=== PATIENT | female | born 1995 | race Caucasian/White ===

== ENCOUNTER 2017-05-06 13:11 | Emergency (ER) | payer MEDICAID ==
[2017-05-06] MEDS ORDERED: methylPREDNISolone Sodium Succinate 125 MG/2 ML SDV ONE (13:13)
[2017-05-06] MEDS ORDERED: diphenhydrAMINE 50 MG/ML SDV ONE (13:14)
[2017-05-06] MEDS ORDERED: methylPREDNISolone Sodium Succinate 125 MG/2 ML SDV IVPUSH ONE (13:14)
[2017-05-06] MEDS ORDERED: diphenhydrAMINE 50 MG/ML SDV IVPUSH ONE (13:14)
--- NOTE | 2017-05-06 13:32 | EDM.PDOC ---
ED HPI GENERAL MEDICAL PROBLEM - General Stated Complaint: STUNG BY BEE STRAIGHT BACK Time Seen by Provider: 05/06/17 13:15 Source of Information: Reports: Patient History Limitations: Reports: No Limitations - History of Present Illness INITIAL COMMENTS - FREE TEXT/NARRATIVE: This 22 yo female patient reports to the ED due to a bee sting. The patient reports she was working at [employer] and the bee was inside the building and stung her on her left forearm. The patient reports she has had a similar reaction to a bee sting in the past. The patient reports she was not able to afford an EpiPen. The patient reports after the sting, she came directly to the ED. Onset: Today Duration: Minutes:, Constant Location: Reports: Neck, Upper Extremity, Left Quality: Reports: Ache, Dull, Pressure Severity: Moderate Improves with: Reports: None Worsens with: Reports: None Context: Reports: Other (bee sting) Associated Symptoms: Reports: No Other Symptoms Left Arm Pain Score (Numeric/FACES): 10 - Related Data Allergies Allergy/AdvReac Type Severity Reaction Status Date / Time Penicillins Allergy Airway Verified 05/06/17 13:25 Tightness beestings Allergy Swelling Uncoded 05/06/17 13:25 Home Meds: Home Meds Albuterol [Proventil HFA] 1 puff INH ASDIRECTED PRN 06/07/15 [History] Social & Family History - Tobacco Use Smoking Status *Q: Current Every Day Smoker Years of Tobacco use: 4 Packs/Tins Daily: 1 Month Tobacco Last Used: January Second Hand Smoke Exposure: No - Alcohol Use Days Per Week of Alcohol Use: 0 - Recreational Drug Use Recreational Drug Use: No ED ROS ALLERGIC REACTION - Review of Systems Review Of Systems: ROS reveals no pertinent complaints other than HPI. ED EXAM GENERAL NO PERIP PULSE - Physical Exam Exam: See Below Exam Limited By: No Limitations General Appearance: Alert, WD/WN, Moderate Distress, Obese Eye Exam: Bilateral Eye: EOMI, Normal Inspection, PERRL Ears: Normal External Exam, Normal Canal, Hearing Grossly Normal, Normal TMs Nose: Normal Inspection, Normal Mucosa, No Blood Throat/Mouth: Normal Inspection, Normal Lips, Normal Teeth, Normal Gums, Normal Oropharynx, Normal Voice, No Airway Compromise Head: Atraumatic, Normocephalic Neck: Normal Inspection, Supple, Non-Tender, Full Range of Motion Respiratory/Chest: No Respiratory Distress, Lungs Clear, Normal Breath Sounds, No Accessory Muscle Use, Chest Non-Tender Cardiovascular: Normal Peripheral Pulses, Regular Rate, Rhythm, No Edema, No Gallop, No JVD, No Murmur, No Rub (Female) Exam: Deferred Rectal (Female) Exam: Deferred Back Exam: Normal Inspection, Full Range of Motion, NT Extremities: Normal Range of Motion, Normal Capillary Refill, Arm Pain (left forearm swelling and pain) Neurological: Alert, Oriented, CN II-XII Intact, Normal Cognition, Normal Gait, Normal Reflexes, No Motor/Sensory Deficits Psychiatric: Normal Affect, Normal Mood Skin Exam: Erythema (left forearm) Lymphatic: No Adenopathy Course - Vital Signs Last Recorded V/S: Last Vital Signs Temp 36.1 C 05/06/17 13:21 Pulse 100 05/06/17 13:21 Resp 16 05/06/17 13:21 BP 128/66 05/06/17 13:21 Pulse Ox 99 05/06/17 13:21 - Orders/Labs/Meds Meds: Medications Discontinued Medications Generic Name Dose Route Start Last Admin Trade Name Maximino PRN Reason Stop Dose Admin Diphenhydramine HCl 50 mg 05/06/17 13:14 05/06/17 13:17 Benadryl IVPUSH 05/06/17 13:15 50 mg ONETIME ONE Administration Diphenhydramine HCl Confirm 05/06/17 13:14 05/06/17 13:34 Benadryl Administered 05/06/17 13:15 Not Given Dose 50 mg .ROUTE .STK-MED ONE Methylprednisolone Sodium Succinate 125 mg 05/06/17 13:14 05/06/17 13:17 Solu-Medrol IVPUSH 05/06/17 13:15 125 mg ONETIME ONE Administration Methylprednisolone Sodium Succinate Confirm 05/06/17 13:13 05/06/17 13:34 Solu-Medrol Administered 05/06/17 13:14 Not Given Dose 125 mg .ROUTE .STK-MED ONE Departure - Departure Time of Disposition: 14:03 Disposition: Home, Self-Care 01 Condition: Fair Clinical Impression: Bee sting-induced anaphylaxis Qualifiers: Encounter type: subsequent encounter Injury intent: accidental or unintentional Qualified Code(s): T63.441D - Toxic effect of venom of bees, accidental (unintentional), subsequent encounter - Discharge Information Instructions: Bee, Wasp, or Hornet Sting Care Plan Goals: The patient was advised of the examination results during the visit. The patient was given an IV dose of Benadryl and and IV dose of Solu-Medrol while in the ED. The patient was discharged with a script for Prednisone (20 mg) #10 to take 2 by mouth daily starting 05/07/17 and an EpiPen (0.3 mg) #1 autoinjector to inject in thigh once symptoms begin after bee sting. The patient should continue to take Benadryl (25 mg) every 6 hours for the next 24 hours. If the patient has any additional symptoms or concerns, the patient should follow-up with her primary care facility or return to the emergency department.
[2017-05-06 14:27] VITALS: BP 124/68
== END 2017-05-06 14:25 | disposition home or self-care (01) ==
LOC: DL.ED 13:11
DX: T63.441A Toxic effect of venom of bees, accidental (unintentional), initial encounter (principal); F17.210 Nicotine dependence, cigarettes, uncomplicated; Z88.0 Allergy status to penicillin
CPT/HCPCS: 96374; 96375; 99283; J1200; J2930

== ENCOUNTER 2017-09-22 22:47 | Emergency (ER) | payer MEDICAID ==
[2017-09-22 23:00] VITALS: BP 132/69
[2017-09-22] MEDS ORDERED: Acetaminophen 325 MG Tab PO ONE (23:25)
[2017-09-22 23:36] LABS: ANION GAP 8.5; CHLORIDE,CL 106 mmol/L (101-111); SODIUM,NA 136 mmol/L (135-145)
--- NOTE | 2017-09-23 00:15 | EDM.PDOC ---
ED HPI GENERAL MEDICAL PROBLEM Right Pelvic Pain Score (Numeric/FACES): 9 <Silvestre Blair - Last Filed: 09/23/17 00:14> - General Source of Information: Reports: Patient History Limitations: Reports: No Limitations <Catherine Guillen - Last Filed: 09/23/17 01:46> - General Chief Complaint: [employer] Problem Stated Complaint: POSSIBLE MISCARRIAGE [id number] Time Seen by Provider: 09/22/17 23:00 - History of Present Illness INITIAL COMMENTS - FREE TEXT/NARRATIVE: C/O bright red vaginal bleeding with cramping and RLQ pain. Has been taking Clomid since July. LMP one month ago. Last OB visit yesterday. Reports HCG 1200. SAB2 Bleeding started approximtely 630 tonight has gone thru 4 large pads. (Catherine Guillen) - Related Data Allergies Allergy/AdvReac Type Severity Reaction Status Date / Time Cephalosporins Allergy Anaphylactic Verified 09/22/17 23:02 Shock Penicillins Allergy Airway Verified 05/06/17 13:25 Tightness beestings Allergy Swelling Uncoded 05/06/17 13:25 Home Meds: Home Meds Albuterol [Proventil HFA] 1 puff INH ASDIRECTED PRN 06/07/15 [History] clomiPHENE Citrate [Serophene] 50 mg PO ASDIRECTED 09/22/17 [History] Past Medical History HEENT History: Reports: None Cardiovascular History: Reports: None Respiratory History: Reports: Asthma Gastrointestinal History: Reports: None Genitourinary History: Reports: None [employer] History: Reports: None Musculoskeletal History: Reports: None Neurological History: Reports: None Psychiatric History: Reports: None Endocrine/Metabolic History: Reports: None Hematologic History: Reports: None Immunologic History: Reports: None Oncologic (Cancer) History: Reports: None Dermatologic History: Reports: None - Infectious Disease History Infectious Disease History: Reports: Chicken Pox - Past Surgical History Head Surgeries/Procedures: Reports: None GI Surgical History: Reports: Appendectomy <Silvestre Blair - Last Filed: 09/23/17 00:14> Social & Family History - Tobacco Use Smoking Status *Q: Light Tobacco Smoker Years of Tobacco use: 5 Packs/Tins Daily: 0.3 Month Tobacco Last Used: January Second Hand Smoke Exposure: No - Caffeine Use Caffeine Use: Reports: Soda - Alcohol Use Days Per Week of Alcohol Use: 0 - Recreational Drug Use Recreational Drug Use: No <Silvestre Blair - Last Filed: 09/23/17 00:14> ED ROS GENERAL - Review of Systems Review Of Systems: ROS reveals no pertinent complaints other than HPI. <Catherine Guillen - Last Filed: 09/23/17 01:46> ED EXAM - Physical Exam Exam: See Below Exam Limited By: No Limitations General Appearance: Alert, Anxious Ears: Normal External Exam Nose: Normal Inspection Throat/Mouth: Normal Inspection Head: Atraumatic, Normocephalic Respiratory/Chest: No Respiratory Distress, Lungs Clear, Normal Breath Sounds Cardiovascular: Regular Rate, Rhythm GI/Abdominal Exam: Normal Bowel Sounds, Soft, Tender (RLQ) (Female) Exam: Normal External Exam, Other (imited exam, small amount blood pooling posterior vaginal vault. Cervix high posterior, not manipulated for visualization.). No: Tissue Present in Cervix/Vagina Extremities: Normal Inspection Neurological: Alert, Oriented, Normal Cognition Psychiatric: Anxious, Tearful Skin Exam: Warm, Dry, Intact, Normal Color <Catherine Guillen - Last Filed: 09/23/17 01:46> Course <Silvestre Blair - Last Filed: 09/23/17 00:14> <Catherine Guillen - Last Filed: 09/23/17 01:46> - Vital Signs Last Recorded V/S: Last Vital Signs Temp 98.6 F 09/22/17 22:57 Pulse 104 H 09/22/17 22:57 Resp 18 09/22/17 22:57 BP 132/69 09/22/17 22:57 Pulse Ox 97 09/22/17 22:57 - Orders/Labs/Meds Orders: Active Orders 24 hr Category Date Time Status OB Ltd 1 or More Fetus [US] Urgent Exams 09/22/17 23:27 Ordered OB Transvaginal [US] Urgent Exams 09/22/17 23:31 Ordered Labs: Laboratory Tests 09/22/17 09/22/17 09/22/17 Range/Units 22:54 23:08 23:08 WBC 14.7 H (5.0-10.0) 10^3/uL RBC 4.38 (4.2-5.4) 10^6/uL Hgb 12.9 (12.0-16.0) g/dL Hct 38.5 (37.0-47.0) % MCV 87.9 (80-100) fL MCH 29.5 (27.0-34.0) pg MCHC 33.5 (33.0-35.0) g/dL Plt Count 297 (150-450) 10^3/uL Neut % (Auto) 67.0 (42.2-75.2) % Lymph % (Auto) 26.1 (20.5-50.1) % Rich % (Auto) 5.2 (2-8) % Eos % (Auto) 1.4 (1.0-3.0) % Baso % (Auto) 0.3 (0.0-1.0) % Sodium 136 (135-145) mmol/L Potassium 3.5 L (3.6-5.0) mmol/L Chloride 106 (101-111) mmol/L Carbon Dioxide 25.0 (21.0-31.0) mmol/L Anion Gap 8.5 BUN 9 (7-18) mg/dL Creatinine 0.7 (0.6-1.3) mg/dL Est Cr Clr Drug Dosing 107.01 mL/min Estimated GFR (MDRD) > 60 BUN/Creatinine Ratio 12.85 Glucose 99 (74-105) mg/dL Calcium 8.4 (8.4-10.2) mg/dl Total Bilirubin < 0.2 L (0.2-1.0) mg/dL AST 23 (10-42) IU/L ALT 26 (10-60) IU/L Alkaline Phosphatase 60 (42-121) IU/L Total Protein 7.4 (6.7-8.2) g/dl Albumin 3.5 (3.2-5.5) g/dl Globulin 3.9 Albumin/Globulin Ratio 0.90 HCG, Qual Weak positive HCG, Quant (0-25) mIU/ml Beta HCG, Quant mIU/ml Urine Color Red (YELLOW) Urine Appearance Cloudy (CLEAR) Urine pH 5.5 (5.0-9.0) Ur Specific Phelps 1.015 (1.005-1.030) Urine Protein 100 H (NEGATIVE) Urine Glucose (UA) Negative (NEGATIVE) Urine Ketones Negative (NEGATIVE) Urine Occult Blood Large H (NEGATIVE) Urine Nitrite Negative (NEGATIVE) Urine Bilirubin Negative (NEGATIVE) Urine Urobilinogen 0.2 (0.2-1.0) mg/dL Ur Leukocyte Esterase Trace H (NEGATIVE) Urine RBC >100 H /HPF Urine WBC 0-5 (0-5/HPF) /HPF Ur Epithelial Cells Moderate H /HPF Urine Bacteria Moderate H (0-FEW/HPF) /HPF Blood Type 09/22/17 09/22/17 Range/Units 23:08 23:08 WBC (5.0-10.0) 10^3/uL RBC (4.2-5.4) 10^6/uL Hgb (12.0-16.0) g/dL Hct (37.0-47.0) % MCV (80-100) fL MCH (27.0-34.0) pg MCHC (33.0-35.0) g/dL Plt Count (150-450) 10^3/uL Neut % (Auto) (42.2-75.2) % Lymph % (Auto) (20.5-50.1) % Rich % (Auto) (2-8) % Eos % (Auto) (1.0-3.0) % Baso % (Auto) (0.0-1.0) % Sodium (135-145) mmol/L Potassium (3.6-5.0) mmol/L Chloride (101-111) mmol/L Carbon Dioxide (21.0-31.0) mmol/L Anion Gap BUN (7-18) mg/dL Creatinine (0.6-1.3) mg/dL Est Cr Clr Drug Dosing mL/min Estimated GFR (MDRD) BUN/Creatinine Ratio Glucose (74-105) mg/dL Calcium (8.4-10.2) mg/dl Total Bilirubin (0.2-1.0) mg/dL AST (10-42) IU/L ALT (10-60) IU/L Alkaline Phosphatase (42-121) IU/L Total Protein (6.7-8.2) g/dl Albumin (3.2-5.5) g/dl Globulin Albumin/Globulin Ratio HCG, Qual HCG, Quant 15 (0-25) mIU/ml Beta HCG, Quant < 1050 mIU/ml Urine Color (YELLOW) Urine Appearance (CLEAR) Urine pH (5.0-9.0) Ur Specific Phelps (1.005-1.030) Urine Protein (NEGATIVE) Urine Glucose (UA) (NEGATIVE) Urine Ketones (NEGATIVE) Urine Occult Blood (NEGATIVE) Urine Nitrite (NEGATIVE) Urine Bilirubin (NEGATIVE) Urine Urobilinogen (0.2-1.0) mg/dL Ur Leukocyte Esterase (NEGATIVE) Urine RBC /HPF Urine WBC (0-5/HPF) /HPF Ur Epithelial Cells /HPF Urine Bacteria (0-FEW/HPF) /HPF Blood Type A POSITIVE Meds: Medications Discontinued Medications Generic Name Dose Route Start Last Admin Trade Name Freq PRN Reason Stop Dose Admin Acetaminophen 650 mg 09/22/17 23:25 09/22/17 23:29 Tylenol PO 09/22/17 23:26 650 mg NOW ONE Administration - Radiology Interpretation Free Text/Narrative:: US: No intrauterine sac appreciated, given early gestational age by LMP may be too early to dectect . Although no evidence of ectopic is seen on US this cannot be totally excluded. Recommend follow up serial HCG and repeat US in 7-10 days (Catherine Guillen) Departure <Silvestre Blair - Last Filed: 09/23/17 00:14> - Departure Time of Disposition: 00:20 Condition: Good <Catherine Guillen - Last Filed: 09/23/17 01:46> - Departure Disposition: Home, Self-Care 01 Clinical Impression: Threatened - Discharge Information Instructions: Threatened Miscarriage Forms: ED Department Discharge Additional Instructions: rest follow up with Dr Melgoza in am Urgent follow up if severe bleeding or dizziness tylenol 650mg every 4 hours as needed - My Orders Last 24 Hours: My Active Orders 09/22/17 23:27 OB Ltd 1 or More Fetus [US] Urgent 09/22/17 23:31 OB Transvaginal [US] Urgent - Assessment/Plan Last 24 Hours: My Active Orders 09/22/17 23:27 OB Ltd 1 or More Fetus [US] Urgent 09/22/17 23:31 OB Transvaginal [US] Urgent
== END 2017-09-23 00:49 | disposition home or self-care (01) ==
LOC: DL.ED 22:47
DX: O20.0 Threatened abortion (principal); O99.511 Diseases of the respiratory system complicating pregnancy, first trimester; J45.909 Unspecified asthma, uncomplicated; O99.331 Smoking (tobacco) complicating pregnancy, first trimester; Z88.0 Allergy status to penicillin; Z88.1 Allergy status to other antibiotic agents; Z91.030 Bee allergy status; Z3A.01 Less than 8 weeks gestation of pregnancy
CPT/HCPCS: 36415; 76815; 76817; 80053; 81001; 84702; 84703; 85025; 86900; 86901; 99284; A9270